=== PATIENT | female | born 1950 | race Caucasian/White ===

== ENCOUNTER 2021-09-22 16:14 | Emergency (ER) | payer MEDICARE, OTHER ==
--- NOTE | 2021-09-22 17:30 | EDM.PDOC ---
ED HPI GENERAL MEDICAL PROBLEM - General Chief Complaint: Upper Extremity Injury/Pain Stated Complaint: RIGHT ELBOW PAIN AFTER FALL Time Seen by Provider: 09/22/21 17:20 Source of Information: Reports: Patient, Old Records History Limitations: Reports: No Limitations - History of Present Illness INITIAL COMMENTS - FREE TEXT/NARRATIVE: 71 yo female slipped on a wet/icy floor of a local [employer] shop about 3:15 pm today and fell striking her R elbow. Is here now for eval of this injury. No other injuries in the fall. Took ibuprofen before arrival. 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 (see below) (none) Right Elbow Pain Score (Numeric/FACES): 6 - Related Data Allergies Allergy/AdvReac Type Severity Reaction Status Date / Time No Known Allergies Allergy Verified 09/22/21 17:12 Home Meds: Home Meds Letrozole 2.5 mg PO DAILY 09/22/21 [History] Losartan [Cozaar] 50 mg PO DAILY 09/22/21 [History] Rosuvastatin [Crestor] 10 mg PO DAILY 09/22/21 [History] Past Medical History HEENT History: Reports: Impaired Vision Cardiovascular History: Reports: High Cholesterol, Hypertension [employer] History: Reports: Musculoskeletal History: Reports: Osteoarthritis, Other (See Below) Other Musculoskeletal History: osteopenia Oncologic (Cancer) History: Reports: Breast 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 1 can diet coke daily. occ tea - Alcohol Use Days Per Week of Alcohol Use: 1 Number of Drinks Per Day: 2 Total Drinks Per Week: 2 - Recreational Drug Use Recreational Drug Use: No Review of Systems - Review of Systems Review Of Systems: See Below Constitutional: Reports: No Symptoms Musculoskeletal: Reports: Joint Pain (R elbow). Denies: Joint Swelling Skin: Reports: No Symptoms Neurological: Reports: No Symptoms ED EXAM, GENERAL - Physical Exam Exam: See Below Exam Limited By: No Limitations General Appearance: Alert, WD/WN, No Apparent Distress Extremities: Normal Inspection, Normal Range of Motion, No Pedal Edema. No: Non-Tender, Joint Swelling, Limited Range of Motion (good ROM to supination and pronation with minimal radial head tenderness. ), Increased Warmth, Redness Neurological: Alert, Oriented, CN II-XII Intact, Normal Cognition Psychiatric: Normal Affect, Normal Mood Skin Exam: Warm, Dry, Intact, Normal Color, No Rash. No: Diaphoretic, Ecchymosis, Erythema Course - Vital Signs Last Recorded V/S: Last Vital Signs Temp 36.7 C 09/22/21 17:16 Pulse 75 09/22/21 17:16 Resp 16 09/22/21 17:16 BP 185/86 H 09/22/21 17:16 Pulse Ox 97 09/22/21 17:16 - Orders/Labs/Meds Orders: Active Orders 24 hr Category Date Time Status Elbow Min 3V Rt [CR] Stat Exams 09/22/21 16:58 Taken - Radiology Interpretation Free Text/Narrative:: Neg R elbow X-ray Departure - Departure Time of Disposition: 17:59 Disposition: Home, Self-Care 01 Condition: Fair Clinical Impression: Contusion of right elbow Qualifiers: Encounter type: initial encounter Qualified Code(s): S50.01XA - Contusion of ri ght elbow, initial encounter - Discharge Information *PRESCRIPTION DRUG MONITORING PROGRAM REVIEWED*: Not Applicable *COPY OF PRESCRIPTION DRUG MONITORING REPORT IN PATIENT ABELARDO: Not Applicable Instructions: Contusion, [id number] Referrals: Jaylyn Pearce MD [Primary Care Provider] - Forms: ED Department Discharge Additional Instructions: Rest the right arm. Take ibuprofen and/or acetaminophen as needed for pain relief. Recheck if not fully healed in a week. Sepsis Event Note (ED) - Evaluation Sepsis Screening Result: No Definite Risk - Focused Exam Vital Signs: Vital Signs Temp Pulse Resp BP Pulse Ox 09/22/21 17:16 36.7 C 75 16 185/86 H 97 09/22/21 16:39 36.7 C 75 16 185/86 H 97 - My Orders Last 24 Hours: My Active Orders 09/22/21 16:58 Elbow Min 3V Rt [CR] Stat - Assessment/Plan Last 24 Hours: My Active Orders 09/22/21 16:58 Elbow Min 3V Rt [CR] Stat
--- NOTE | 2021-09-22 18:18 | CRLCR ---
For Patients: As a result of the Century Cures Act, medical imaging exams and procedure reports are released immediately into your electronic medical record. You may view this report before your referring provider. If you have questions, please contact your health care provider. Indication: Fall with injury. Technique: Right elbow 3 views. Comparison: None. Findings/Impression: Bones: Relatively subtle acute nondisplaced fracture is present in the radial head. No other osseous abnormality. Joint spaces: Moderate-sized traumatic joint effusion. Soft tissues: Unremarkable. Dictated by Dada Benson MD @ 09/22/2021 6:17:56 PM (Electronically Signed)
== END 2021-09-22 18:15 | disposition home or self-care (01) ==
LOC: JP.ED 16:14
DX: S50.01XA Contusion of right elbow, initial encounter (principal); E78.00 Pure hypercholesterolemia, unspecified; I10 Essential (primary) hypertension; Z87.891 Personal history of nicotine dependence; Z79.899 Other long term (current) drug therapy; W01.198A Fall on same level from slipping, tripping and stumbling with subsequent striking against other object, initial encounter; Y92.513 Shop (commercial) as the place of occurrence of the external cause
CPT/HCPCS: 73080-RT; 99283-25

== ENCOUNTER 2022-05-30 06:43 | Day surgery (SDC) | payer MEDICARE, OTHER ==
[2022-05-30] MEDS ORDERED: Propofol 200 MG/20 ML SDV ONE ×2 (07:17→08:34)
[2022-05-30] MEDS ORDERED: Midazolam 1 MG/ML 2 ML SDV ONE (07:17)
[2022-05-30] MEDS ORDERED: Lactated Ringers 1,000 ML IV SCH (07:30)
== END 2022-05-30 09:56 | disposition home or self-care (01) ==
LOC: JP.SDS 06:43
PROVIDERS: ATTEND Family Medicine
DX: Z12.11 Encounter for screening for malignant neoplasm of colon (principal); K57.30 Diverticulosis of large intestine without perforation or abscess without bleeding; K64.8 Other hemorrhoids; K63.89 Other specified diseases of intestine; I10 Essential (primary) hypertension; G47.33 Obstructive sleep apnea (adult) (pediatric); E78.5 Hyperlipidemia, unspecified; Z85.3 Personal history of malignant neoplasm of breast
CPT/HCPCS: 45378; C1751; J1642; J2250; J2704; J7120

== ENCOUNTER 2025-07-10 20:51 | Emergency (ER) | payer MEDICARE, OTHER ==
[2025-07-10 21:56] LABS: BASOPHILS ABSOLUTE AUTO 0.04 K/uL (0.00-0.10); BASOPHILS PERCENT AUTO 0.8 % (0.1-1.3); EOSINOPHILS ABSOLUTE AUTO 0.16 K/uL (0.00-0.40); EOSINOPHILS PERCENT AUTO 3.0 % (0.0-5.4); IMMATURE GRAN ABSOLUTE AUTO 0.02 K/uL (0.00-0.23); IMMATURE GRAN PERCENT AUTO 0.4 % (0.0-0.7); LYMPHOCYTES ABSOLUTE AUTO 0.94 K/uL (0.8-3.3); LYMPHOCYTES PERCENT AUTO 17.8 % (11.4-47.7); MONOCYTES ABSOLUTE AUTO 0.51 K/uL (0.20-0.90); MONOCYTES PERCENT AUTO 9.7 % (3.3-12.6); NEUTROPHILS ABSOLUTE AUTO 3.61 K/uL (1.0-7.6); NEUTROPHILS PERCENT AUTO 68.3 % (40.0-78.1); PLATELET COUNT,PLT 298 K/uL (130-375); RED BLOOD CELL COUNT 4.68 M/uL (3.77-5.24); WHITE BLOOD CELL COUNT,WBC 5.3 K/uL (3.2-11.0)
[2025-07-10] MEDS: Ondansetron 4 MG Tab.DIS PO ONE (22:01)
[2025-07-10 22:20] LABS: BLOOD UREA NITROGEN,BUN 18 mg/dL (7-18); CARBON DIOXIDE,CO2 32 mmol/L (21-32); CHLORIDE,CL 105 mmol/L (100-108); CREATININE 0.8 mg/dL (0.6-1.0); ESTIMATED GFR 77 mL/min (>60); GLUCOSE RANDOM 132 mg/dL (74-106); POTASSIUM,K 3.7 mmol/L (3.6-5.2); SODIUM,NA 143 mmol/L (140-148); TROPONIN I HIGH SENSITIVITY 9.7 pg/mL (<=60.3)
== END 2025-07-10 23:45 | disposition home or self-care (01) ==
LOC: JP.ED 20:51
DX: R13.19 Other dysphagia (principal); I10 Essential (primary) hypertension; E78.00 Pure hypercholesterolemia, unspecified
CPT/HCPCS: 36415; 80048; 84484; 85025; 96372; 99284; J1610; Q0162

== ENCOUNTER 2025-07-15 07:46 | Day surgery (SDC) | payer MEDICARE, OTHER ==
[2025-07-15] MEDS: Lactated Ringers 1,000 ML IV SCH (08:53)
[2025-07-15] MEDS ORDERED: fentaNYL 100 MCG/2 ML SDV ONE (09:09)
[2025-07-15] MEDS ORDERED: Propofol 200 MG/20 ML SDV ONE (09:09)
== END 2025-07-15 11:40 | disposition home or self-care (01) ==
LOC: JP.SDS 07:46
PROVIDERS: ATTEND Surgery
DX: K29.50 Unspecified chronic gastritis without bleeding (principal); B96.81 Helicobacter pylori [H. pylori] as the cause of diseases classified elsewhere; K20.0 Eosinophilic esophagitis; I10 Essential (primary) hypertension; E78.5 Hyperlipidemia, unspecified; Z79.899 Other long term (current) drug therapy
CPT/HCPCS: 00731; 43239; J1642; J2704; J3010; J7120; 88305; 88342